=== PATIENT | female | born 1955 | race African-American/Black ===

== ENCOUNTER 2017-11-04 08:46 | Observation (INO) ==
[2017-11-04] MEDS ORDERED: SODIUM CHLORIDE 0.9% 500 ML IV STA (09:30)
[2017-11-04 09:39] LABS: Basophils % 0.4 % (0.0-0.8); Eosinophils # 0.1 10*3/uL (0.0-0.87); Eosinophils % 1.9 % (0.00-10.9); Hematocrit 37.3 VOL% (35.7-47.0); Hemoglobin 12.2 GM/DL (12.0-16.0); Immature Granulocytes % 0.2 %; Immature Granulocytes Absolute 0.01 #; Lymphocytes # 1.3 10*3/uL (1.4-4.0); Mean Corpuscular HGB Conc 32.7 GM/DL (32-36); Mean Corpuscular Hemoglobin 29 PG (27-34); Mean Corpuscular Volume 87.6 FL (87-102); Mean Platelet Volume 9.3 FL (9.6-12.0); Monocytes # 0.4 10*3/uL (0.11-0.8); Monocytes % 7.6 % (1.7-12.7); Neutrophils % 62.9 % (38.7-73.9); Platelet Count 381 T/CUMM (130-400); Red Blood Count 4.26 MC/CUMM (3.8-5.5); Red Cell Distribution Width 13.7 % (9.3-17.3); White Blood Count 4.7 T/CUMM (4-12)
[2017-11-04] MEDS ORDERED: ACETAMINOPHEN 500 MG TABLET PO STA (10:36)
[2017-11-04 10:40] LABS: Alanine Aminotransferase 22 U/L (13-56); Albumin 3.7 G/DL (3.4-5.0); Alkaline Phosphatase 98 U/L (45-117); Aspartate Amino Transferase 20 U/L (0-37); Bilirubin,Total < 0.39 MG/DL (0.2-1.0); Blood Urea Nitrogen 15 MG/DL (7-18); Calcium 9.3 MG/DL (8.5-10.1); Glucose 102 MG/DL (74-106); Potassium 4.1 MMOL/L (3.5-5.1); Sodium 136 MMOL/L (136-145); Troponin I Only < 0.015 NG/ML (0.00-0.045)
[2017-11-04] MEDS ORDERED: ACETAMINOPHEN 500 MG TABLET ONE (10:56)
[2017-11-04] MEDS ORDERED: ACETAMINOPHEN 325 MG TABLET PO PRN (15:02)
[2017-11-04] MEDS ORDERED: ZALEPLON 5 MG CAPSULE PO PRN (15:02)
[2017-11-04] MEDS ORDERED: LORazepam 2 MG/1 ML VIAL IV ONE (15:19)
[2017-11-04] MEDS ORDERED: ENOXAPARIN 40 MG/0.4 ML SYRINGE SUBCUT SCH (15:30)
[2017-11-04] MEDS: DOCUSATE SODIUM 100 MG CAPSULE PO SCH (21:28)
[2017-11-05 04:56] LABS: Basophils % 0.4 % (0.0-0.8); Eosinophils # 0.1 10*3/uL (0.0-0.87); Eosinophils % 2.4 % (0.00-10.9); Hematocrit 34.4 VOL% (35.7-47.0); Hemoglobin 10.9 GM/DL (12.0-16.0); Immature Granulocytes % 0.2 %; Immature Granulocytes Absolute 0.01 #; Lymphocytes % 36.1 % (21.3-54.2); Mean Corpuscular HGB Conc 31.7 GM/DL (32-36); Mean Corpuscular Hemoglobin 29 PG (27-34); Mean Corpuscular Volume 89.8 FL (87-102); Mean Platelet Volume 9.1 FL (9.6-12.0); Monocytes # 0.5 10*3/uL (0.11-0.8); Monocytes % 9.1 % (1.7-12.7); Neutrophils # 2.9 10*3/uL (1.4-7.4); Neutrophils % 51.8 % (38.7-73.9); Platelet Count 315 T/CUMM (130-400); Red Blood Count 3.83 MC/CUMM (3.8-5.5); Red Cell Distribution Width 13.7 % (9.3-17.3); White Blood Count 5.5 T/CUMM (4-12)
[2017-11-05 05:49] LABS: Albumin 3.2 G/DL (3.4-5.0); Bilirubin,Total 0.7 MG/DL (0.2-1.0); Calcium 8.8 MG/DL (8.5-10.1); Osmolality,Calculated 276.7 MOS/KG (273-304); Potassium 4.6 MMOL/L (3.5-5.1); Total Protein 6.6 G/DL (6.4-8.3)
[2017-11-05 05:53] LABS: Risk Ratio 6.34; Thyroid Stimulating Hormone 1.7 uIU/ml (0.358-3.74); VLDL CHOLESTEROL 34.8 MG/DL
[2017-11-05] MEDS ORDERED: PANTOPRAZOLE 40 MG TABLET PO SCH (09:00)
[2017-11-05] MEDS: DOCUSATE SODIUM 100 MG CAPSULE PO SCH (09:07)
[2017-11-05 11:37] VITALS: BP 148/80
[2017-11-05] MEDS ORDERED: DOXYCYCLINE HYCLATE 100 MG CAPSULE PO SCH (21:00)
[2017-11-06] MEDS ORDERED: amLODIPine 5 MG TABLET PO SCH (09:00)
== END 2017-11-05 14:30 | disposition home or self-care (01) ==
LOC: EDUNIT# → N.ED 08:46 → N.EDINP 11:01 → INTOOBSV 11:01 → N.EDINP 13:27 → N.TELEN 13:55
PROVIDERS: ADMIT Hospitalist; ATTEND Hospitalist